=== PATIENT | female | born 1955 | race Caucasian/White ===

== ENCOUNTER 2021-05-19 20:34 | Emergency (ER) | payer MEDICARE, OTHER ==
[~2021-05-19] VITALS: Ht 157.5 cm; Wt 72.7 kg
[~2021-05-19 20:34] MED LIST: ASPI-556 PO
[2021-05-19 20:55] LABS: GLUCOMETER DEV NAME(LOC) ERT.5; GLUCOSE,POINT OF CARE 301 MG/DL (70-110)
[2021-05-19 21:10] VITALS: BP 127/74
== END 2021-05-19 22:05 | disposition home or self-care (01) ==
LOC: EMS 20:36
DX: H10.9 Unspecified conjunctivitis (principal); E05.90 Thyrotoxicosis, unspecified without thyrotoxic crisis or storm; E11.65 Type 2 diabetes mellitus with hyperglycemia; Z79.82 Long term (current) use of aspirin
CPT/HCPCS: 82962; 99283